=== PATIENT | female | born 1970 | race Caucasian/White ===

== ENCOUNTER 2020-03-09 17:48 | Emergency (ER) | payer MEDICAID ==
[~2020-03-09] VITALS: Ht 149.9 cm; Wt 66.6 kg
[2020-03-09 17:51] VITALS: BP 170/83
[2020-03-09] MEDS ORDERED: MORPHINE SULFATE 4 MG/ML, 1ML IVPush PRN (18:30)
[2020-03-09] MEDS ORDERED: ONDANSETRON 2MG/ML, 2ML IVPush ONE (18:30)
[2020-03-09 18:55] LABS: MICROSCOPIC NOT IND
[2020-03-09 19:06] LABS: ALBUMIN 3.6 g/dL (3.4-5.0); ANION GAP 5 mmol/L (5-15); CALCIUM 8.6 mg/dL (8.5-10.1); CHLORIDE 108 mmol/L (98-107); CREATININE 0.81 mg/dL (0.55-1.02)
[2020-03-09 19:08] LABS: MEAN CORPUSCULAR HEMOGLOBIN 18.7 pg (27.0-34.8); MEAN CORPUSCULAR HGB CONC 30.7 g/dL (32.4-35.8); MEAN CORPUSCULAR VOLUME 60.9 fL (80-100); PLATELET COUNT 349 x10^3/uL (130-400); RED BLOOD COUNT 4.43 x10^6/uL (3.82-5.3); RED CELL DISTRIBUTION WIDTH 19.3 % (9.6-15.2)
--- NOTE | 2020-03-09 19:25 | NUR ---
Returned from Ultrasound. She is in no apparent distress. No complaints or request at this time.
[2020-03-09 19:26] LABS: MD YES
[2020-03-09 19:28] LABS: BASOS#(MANUAL) 0.09 x10^3/uL (0-0.1); BASOS% (MANUAL) 1 % (0-1); LYMPH#(MANUAL) 2.79 x10^3/uL (1-3.4); LYMPHS% (MANUAL) 31 % (22-44); MONOS#(MANUAL) 0.72 x10^3/uL (0.3-2.7); MONOS% (MANUAL) 8 % (2-9); SEGS% (MANUAL) 60 % (42-75)
[2020-03-09 19:29] LABS: ANISOCYTOSIS 1+; HYPOCHROMIA 2+; MICROCYTOSIS 2+
[2020-03-09 19:30] LABS: OVALOCYTES 1+; POLYCHROMASIA 1+
[2020-03-09 19:32] LABS: <PLATELET ESTIMATE> ADEQUATE; <PLT MORPHOLOGY> NORMAL PLT MORPH
[2020-03-09] MEDS ORDERED: ACETAMINOPHEN 500 MG TABLET ONE (19:35)
[2020-03-09] MEDS ORDERED: ACETAMINOPHEN 500 MG TABLET PO ONE (20:00)
[2020-03-09] MEDS ORDERED: KETOROLAC 30 MG/1 ML ONE (20:48)
[2020-03-09] MEDS ORDERED: KETOROLAC 30 MG/1 ML IM ONE (21:00)
== END 2020-03-09 21:18 | disposition home or self-care (01) ==
LOC: ED 18:18
DX: D50.9 Iron deficiency anemia, unspecified (principal); R10.32 Left lower quadrant pain
CPT/HCPCS: 36415; 76830; 80048; 81003; 82040; 84703; 85025; 99284